=== PATIENT | female | born 1950 | race American Indian/Alaskan Native ===

== ENCOUNTER 2022-01-10 14:44 | Emergency (ER) | payer MEDICARE ==
--- NOTE | 2022-01-10 15:45 | XRay Report ---
RIGHT HAND 3 VIEWS INDICATION / CLINICAL INFORMATION: Injury with right hand pain. COMPARISON: None available. FINDINGS: BONES / JOINT(S): There are moderate degenerative changes involving the first carpometacarpal joint. There are mild degenerative changes involving the DIP joints, especially the third and fourth fingers . There is an acute, mildly displaced fracture involving the base of the distal phalanx of the ring f mikey with probable extension into the DIP joint medially. SOFT TISSUES: No significant abnormality. ADDITIONAL FINDINGS: None. IMPRESSION: Acute fracture involving the base of the distal phalanx of the ring finger with probable intra-articular extension. Signer Name: Quincy Horowitz MD Signed: 01/10/2022 3:41 PM Workstation Name: [id number]
[2022-01-10] MEDS ORDERED: ALBUTEROL 2.5 MG/3 ML NEBU IH ONE (21:08)
[2022-01-10] MEDS ORDERED: HYDROcodone/ACETAMINOPHEN 5-325 MG TAB PO STA (21:08)
[2022-01-10] MEDS ORDERED: dexAMETHasone 4 MG/ML VIAL IM ONE (21:08)
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
--- NOTE | 2022-01-10 21:54 | XRay Report ---
CHEST 2 VIEWS INDICATION / CLINICAL INFORMATION: sob and pain. COMPARISON: None available. FINDINGS: SUPPORT DEVICES: None. HEART / MEDIASTINUM: Mild cardiomegaly. LUNGS / PLEURA: No significant pulmonary or pleural abnormality. No pneumothorax. ADDITIONAL FINDINGS: No significant additional findings. IMPRESSION: 1. No acute findings. Signer Name: Ning Meehan MD Signed: 01/10/2022 9:49 PM Workstation Name: [id number]
[2022-01-10 23:34] VITALS: BP 127/95
== END 2022-01-10 23:36 | disposition home or self-care (01) ==
LOC: ED 14:44
DX: S62.634A Displaced fracture of distal phalanx of right ring finger, initial encounter for closed fracture (principal); J45.909 Unspecified asthma, uncomplicated; V89.2XXA Person injured in unspecified motor-vehicle accident, traffic, initial encounter; Y93.89 Activity, other specified; Y92.89 Other specified places as the place of occurrence of the external cause; Y99.8 Other external cause status
CPT/HCPCS: 29130; 71046; 73090; 73130; 94640; 96372; 99284; J1100